=== PATIENT | female | born 1960 | race Caucasian/White ===

== ENCOUNTER 2018-09-01 15:54 | Emergency (ER) | payer BC ==
--- NOTE | 2018-09-01 16:34 | EDM.PDOC ---
ED HPI GENERAL MEDICAL PROBLEM - General Chief Complaint: ENT Problem Stated Complaint: TOOTHACHE Time Seen by Provider: 09/01/18 16:15 Source of Information: Reports: Patient History Limitations: Reports: No Limitations - History of Present Illness INITIAL COMMENTS - FREE TEXT/NARRATIVE: 57 YO WF presents to ER complaining of toothache which began yesterday. Pt with multiple dental caries with poor dentition and states she has an appointment with a dentist this week for further evaluation and treatment. Pt denies any gum swelling or abscess but states she is having increased discomfort since yesterday. Pt denies fever/chills, no nausea/vomiting. Onset Date: 08/31/18 Duration: Day(s): (2) Location: Reports: Other (dental pain) Quality: Reports: Ache Severity: Moderate Improves with: Reports: None Worsens with: Reports: None Associated Symptoms: Reports: No Other Symptoms Treatments REVIEW RN: Reports: Acetaminophen Right Gums Pain Score (Numeric/FACES): 7 - Related Data Allergies Allergy/AdvReac Type Severity Reaction Status Date / Time codeine Allergy Change Verified 09/01/18 16:45 Mental Status Penicillins Allergy Hives Verified 09/01/18 16:45 Home Meds: Home Meds Clindamycin HCl [Cleocin HCl] 300 mg PO Q8HR 7 Days #18 capsule 09/01/18 [Rx] ED ROS ENT - Review of Systems Review Of Systems: See Below Constitutional: Reports: No Symptoms HEENT: Reports: Dental Pain Respiratory: Reports: No Symptoms Cardiovascular: Reports: No Symptoms Endocrine: Reports: No Symptoms GI/Abdominal: Reports: No Symptoms : Reports: No Symptoms Musculoskeletal: Reports: No Symptoms Skin: Reports: No Symptoms Neurological: Reports: No Symptoms Psychiatric: Reports: No Symptoms Hematologic/Lymphatic: Reports: No Symptoms Immunologic: Reports: No Symptoms ED EXAM, ENT - Physical Exam Exam: See Below Exam Limited By: No Limitations General Appearance: Alert, WD/WN, No Apparent Distress Mouth/Throat: Normal Lips, Dental Pain, Dental Tenderness. No: Bleeding, Dental Abcess, Dental Trauma Head: Atraumatic, Normocephalic Neck: Normal Inspection, Supple, Non-Tender, Full Range of Motion Respiratory/Chest: No Respiratory Distress, Lungs Clear, Normal Breath Sounds, No Accessory Muscle Use, Chest Non-Tender Cardiovascular: Normal Peripheral Pulses, Regular Rate, Rhythm, No Edema, No Gallop, No JVD, No Murmur, No Rub GI/Abdominal: Normal Bowel Sounds, Soft, Non-Tender, No Organomegaly, No Distention, No Abnormal Bruit, No Mass (Female) Exam: Normal External Exam, Normal Speculum Exam, Normal Bimanual Exam Back: Normal Inspection, Full Range of Motion Extremities: Normal Inspection, Normal Range of Motion, Non-Tender, No Pedal Edema, Normal Capillary Refill Neurological: Alert, Oriented, CN II-XII Intact, Normal Cognition, Normal Gait, Normal Reflexes, No Motor/Sensory Deficits Psychiatric: Normal Affect, Normal Mood Skin: Warm, Dry, Intact, Normal Color, No Rash Lymphatic: No Adenopathy Course - Vital Signs Last Recorded V/S: Last Vital Signs Temp 36.7 C 09/01/18 16:09 Pulse 69 09/01/18 16:09 Resp 16 09/01/18 16:09 BP 151/67 H 09/01/18 16:09 Pulse Ox 97 09/01/18 16:09 - Orders/Labs/Meds Orders: Active Orders 24 hr Category Date Time Status Clindamycin HCl [Cleocin] Med 09/01/18 16:43 Once 900 mg PO ONETIME ONE Departure - Departure Time of Disposition: 16:48 Disposition: Home, Self-Care 01 Condition: Good Clinical Impression: Dental caries - Discharge Information Prescriptions: Clindamycin HCl [Cleocin HCl] 300 mg PO Q8HR 7 Days #18 capsule Instructions: Preventive Dental Care, Adult Referrals: Josue Rosas [facility] [Primary Care Provider] - Forms: ED Department Discharge Additional Instructions: 1. discharge home 2. clindamycin 300mg Q8 x 7 days 3. motrin 800mg PO Q8 PRN pain 4. follow up with dentist as scheduled next week 5. return to ER for worsening symptoms - My Orders Last 24 Hours: My Active Orders 09/01/18 16:43 Clindamycin HCl [Cleocin] 900 mg PO ONETIME ONE - Assessment/Plan Last 24 Hours: My Active Orders 09/01/18 16:43 Clindamycin HCl [Cleocin] 900 mg PO ONETIME ONE Assessment:: 1. dental caries without abscess with poor dentition Plan: 1. discharge home 2. clindamycin 300mg Q8 x 7 days 3. motrin 800mg PO Q8 PRN pain 4. follow up with dentist as scheduled next week 5. return to ER for worsening symptoms
[2018-09-01] MEDS: Clindamycin HCl 150 MG Cap PO ONE (16:59)
== END 2018-09-01 17:00 | disposition home or self-care (01) ==
LOC: KA.ED 15:54
DX: K02.9 Dental caries, unspecified (principal); Z88.5 Allergy status to narcotic agent; Z88.0 Allergy status to penicillin
CPT/HCPCS: 99282; A9270

== ENCOUNTER 2020-09-29 07:08 | Day surgery (SDC) | payer BC, OTHER ==
[~2020-09-29 07:08] MED LIST: Sodium Chloride 0.9% 1,000 ML IV SCH; Sodium Chloride 0.9% 10 ML Syringe FLUSH PRN
[2020-09-29] MEDS ORDERED: Bupivacaine 0.5% 30 ML SDV ONE ×2 (08:02→11:46)
[2020-09-29] MEDS ORDERED: Midazolam 1 MG/ML 2 ML SDV ONE (08:05)
[2020-09-29] MEDS ORDERED: Lidocaine 0.5% 50 ML SDV ONE (08:05)
[2020-09-29] MEDS ORDERED: Propofol 200 MG/20 ML SDV ONE (08:05)
[2020-09-29] MEDS ORDERED: Sodium Chloride 0.9% 100 ML ONE (08:42)
[2020-09-29] MEDS ORDERED: Gentamicin 40 MG/ML 2 ML Vial ONE (08:42)
[2020-09-29] MEDS ORDERED: Bupivacaine 0.5% 10 ML SDV INFILT ONE ×2 (08:43)
--- NOTE | 2020-09-29 09:19 | PCM.OPNOTE ---
- General Post-Op/Procedure Note Date of Surgery/Procedure: 09/29/20 Operative Procedure(s): Lt carpal tunnel syndrome. Findings: Moderate compression of median nerve by transverse carpal ligament noted. Pre Op Diagnosis: Right carpal tunnel syndrome. Post-Op Diagnosis: Right carpal tunnel syndrome. Anesthesia Technique: Regional Block Primary Surgeon: Bambi Mclaughlin Condition: Good Free Text/Narrative:: INFORMED CONSENT: Patient is here today for elective right carpal tunnel decompression.. All aspects of this procedure have been discussed with the patient. All possible complications also, including possibility of , infection, pain, bleeding and unknown complications in CRP. Anesthetic complications were handled by anesthesia department. The patient understands fully well. Patient did not have any further questions for me at the end of my interview. The patient wishes for me to proceed. PROCEDURE: Patient was kept in the supine position and the satisfactory [place] block anesthesia was administered. The right arm was thoroughly prepped and draped in the usual fashion. The tourniquet was placed to the right upper after exsanguination of the arm. A vertical incision was made in the palm directly distal to the distal wrist crease in line with the lateral border of the ring finger. The skin incision was deepened through the subcutaneous tissue, the palmar aponeurosis was incised and then we came down upon the transverse carpal ligament, which was opened along the line of the skin incision proximally and distally. Extreme care was taken to protect the median nerve below. Careful neurolysis was performed . No aberrant structures were noted. Approximately 2 cc of Marcaine 0.5% was instilled into the wound and skin was closed using mattress sutures with 3.0 Nylon. The tourniquet was released. A sterile pressure dressing was applied. The patient tolerated the procedure well and was transferred to the recovery room in excellent condition.
[2020-09-29] MEDS ORDERED: Ketorolac 30 MG/ML SDV IVPUSH ONE (10:22)
[2020-09-29] MEDS ORDERED: Bupivacaine 0.5%/EPINEPHrine 1:200,000 30 ML SDV INFILT ONE (11:50)
[2020-09-29] MEDS ORDERED: Bupivacaine 0.5%/EPINEPHrine 1:200,000 30 ML SDV ONE (11:52)
== END 2020-09-29 12:19 | disposition home or self-care (01) ==
LOC: KA.SDS 07:08
PROVIDERS: ATTEND Family Medicine
DX: G56.03 Carpal tunnel syndrome, bilateral upper limbs (principal); E03.9 Hypothyroidism, unspecified; E78.2 Mixed hyperlipidemia; E66.3 Overweight; Z68.30 Body mass index [BMI] 30.0-30.9, adult; Z79.890 Hormone replacement therapy; Z79.899 Other long term (current) drug therapy; Z88.0 Allergy status to penicillin; Z88.6 Allergy status to analgesic agent; Z01.812 Encounter for preprocedural laboratory examination; Z20.822 Contact with and (suspected) exposure to COVID-19; Z87.891 Personal history of nicotine dependence
CPT/HCPCS: 01810; J1580; J1885; J2250; J2704; J3490; J7030; U0002